=== PATIENT | male | born 1980 | race Caucasian/White ===

== ENCOUNTER 2022-12-23 08:52 | Emergency (ER) | payer OTHER ==
[~2022-12-23] VITALS: Ht 180.3 cm; Wt 68.6 kg
[2022-12-23 08:59] VITALS: BP 126/83; PULSE 60; RESP 16; TEMP 97.7; O2SAT 97
[2022-12-23] MEDS ORDERED: hydrocort. acetate/pramoxine 10gm bottle RC ONE (09:15)
[2022-12-23] MEDS ORDERED: PHEN1SUP96 PR (09:18)
== END 2022-12-23 10:53 | disposition home or self-care (01) ==
LOC: ER 08:53
DX: K64.8 Other hemorrhoids (principal)
CPT/HCPCS: 99283